=== PATIENT | female | born 1960 | race Caucasian/White ===

== ENCOUNTER 2019-02-02 08:59 | Day surgery (SDC) | payer BC ==
[~2019-02-02 08:59] MED LIST: Sodium Chloride 0.9% 1,000 ML IV SCH
[2019-02-02] MEDS ORDERED: Propofol 200 MG/20 ML SDV ONE (11:05)
--- NOTE | 2019-02-02 15:36 | OR ---
DATE OF OPERATION: 02/02/2019 PREOPERATIVE DIAGNOSIS: Dysphagia. POSTOPERATIVE DIAGNOSIS: Dysphagia. PROCEDURE: EGD with biopsy. ANESTHESIA: MAC. ESTIMATED BLOOD LOSS: Minimal. COMPLICATIONS: None. INDICATION FOR THE PROCEDURE: The patient is a 58-year-old female who for the past 5 years has had difficulty, was intermittently swallowing, does feel like she does get solids stuck in her esophagus. She previously had an upper scope 30 years ago. She is here today for EGD. DESCRIPTION OF PROCEDURE: Informed consent was obtained from the patient. The patient was taken to the operating room and placed on the table in the left lateral decubitus position. Monitored anesthesia care was administered. Esophagogastroscope then advanced through the mouth and directed towards the duodenum. Duodenum was reached and appeared to be normal. Scope was withdrawn into the gastric antrum. She did have some mild gastritis. Cold forceps biopsy was taken for pathology and Helicobacter pylori assessment. Retroflexion performed in the stomach as well. She did have a small healing gastric ulcer with no recent signs of bleeding. Esophagogastroscope then withdrawn into the esophagus. Minimal scar tissue at the GE junction. Biopsy of this was taken with cold forceps biopsy. Remainder of the esophagus was normal. No signs of any esophagitis. Esophagogastroscope then withdrawn. FINDINGS: Mild gastritis, healing gastric ulcer, and potential slight stricture at the GE junction. RECOMMENDATIONS: We will follow up on biopsies and treat the H. pylori accordingly. If all biopsies negative and still having some dysphagia, we would bring back for balloon dilatation at that time. GORDON/ISIS /[id number]
== END 2019-02-02 11:58 | disposition home or self-care (01) ==
LOC: LB.SDS 08:59
PROVIDERS: ATTEND Surgery
DX: K29.50 Unspecified chronic gastritis without bleeding (principal); B96.81 Helicobacter pylori [H. pylori] as the cause of diseases classified elsewhere; K22.8 Other specified diseases of esophagus; J45.909 Unspecified asthma, uncomplicated; Z79.899 Other long term (current) drug therapy
CPT/HCPCS: 43239; 88305; J2704; J7030; 43246

== ENCOUNTER 2019-07-11 08:11 | Emergency (ER) | payer BC ==
--- NOTE | 2019-07-11 08:40 | EDM.PDOC ---
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 She did use ice to the area last night. Every time she took another step the knee gave away. States her pain is a "8" when she tries to step. Minimal pain with sitting/ lying. No swelling and no bruising to area. States no hx of injury to the leg in the past. Right Lower Knee Pain Score (Numeric/FACES): 8 - Related Data Allergies Allergy/AdvReac Type Severity Reaction Status Date / Time No Known Allergies Allergy Verified 02/02/19 09:13 Home Meds: Home Meds Diclofenac Sodium [Voltaren] 50 mg PO TIDMEALS 09/29/17 [History] Hydrocodone/Acetaminophen [[place] 5-325] 1 tab PO Q4H PRN 09/29/17 [History] Albuterol [Ventolin HFA] 2 inh INH Q4HR PRN 11/21/18 [History] Albuterol [Ventolin HFA] 1 - 2 puff INH Q6H 02/02/19 [History] Lidocaine 1 patch TRDERM DAILY 02/02/19 [History] amLODIPine [Norvasc] 2.5 mg PO DAILY 02/02/19 [History] Past Medical History Respiratory History: Reports: Asthma Gastrointestinal History: Reports: Other (See Below) Other Gastrointestinal History: issues with swallowing some foods Genitourinary History: Reports: None 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: Musculoskeletal History: Reports: Arthritis - Past Surgical History Respiratory Surgical History: Reports: None GI Surgical History: Reports: None Female Surgical History: Reports: Section Musculoskeletal Surgical History: Reports: None Social & Family History - Family History Family Medical History: Noncontributory - Caffeine Use Caffeine Use: Reports: Coffee Review of Systems - Review of Systems Review Of Systems: See Below Constitutional: Reports: No Symptoms Respiratory: Reports: No Symptoms Cardiovascular: Reports: No Symptoms GI/Abdominal: Reports: No Symptoms Musculoskeletal: Reports: Other (right knee pain and laxity of knee joint) Skin: Reports: No Symptoms Neurological: Reports: No Symptoms ED EXAM, GENERAL - Physical Exam Exam: See Below Exam Limited By: No Limitations General Appearance: Alert, No Apparent Distress Extremities: Normal Inspection, No Pedal Edema, Other (pain with inversion of lower leg and pain with flexion of leg. No pain with extension. Laxity of patella noted. ) Neurological: Alert, Oriented, Normal Cognition Psychiatric: Normal Affect, Normal Mood Skin Exam: Warm, Dry, Intact, Normal Color. No: Ecchymosis, Erythema Course - Vital Signs Last Recorded V/S: Last Vital Signs Temp 97.8 F 07/11/19 08:31 Pulse 83 07/11/19 08:31 Resp 16 07/11/19 08:31 BP 131/78 07/11/19 08:31 Pulse Ox 99 07/11/19 08:31 - Orders/Labs/Meds Orders: Active Orders 24 hr Category Date Time Status Knee wo Cont Rt [MR] Stat Exams 07/11/19 08:49 Taken - Re-Assessments/Exams Free Text/Narrative Re-Assessment/Exam: 07/11/19 08:42 Will get x-ray of knee 3 views and if no fracture noted, will obtain MRI of knee. 07/11/19 08:51 No acute fracture noted, will obtain MRI of knee with the laxity of the joint. 07/11/19 11:08 X-ray radiology read with mild osteoarthritic changes and moderate joint effusion. No fracture, no dislocation. MRI results pending. Departure - Departure Time of Disposition: 09:15 Disposition: Home, Self-Care 01 Condition: Good Clinical Impression: Knee hyperextension injury - Discharge Information *PRESCRIPTION DRUG MONITORING PROGRAM REVIEWED*: Not Applicable *COPY OF PRESCRIPTION DRUG MONITORING REPORT IN PATIENT RC: Not Applicable Instructions: Crutch Use, Adult, [id number], Combined Knee Ligament Sprain Referrals: PCP,None [Primary Care Provider] - Forms: ED Department Discharge Care Plan Goals: Return at 10:15 for MRI. May take tylenol or motrin for the pain. Rest knee and leg as much as possible - My Orders Last 24 Hours: My Active Orders 07/11/19 08:49 Knee wo Cont Rt [MR] Stat - Assessment/Plan Last 24 Hours: My Active Orders 07/11/19 08:49 Knee wo Cont Rt [MR] Stat Plan: Laxity of right knee and knee pain: Immobilizer applied and crutches dispensed and reviewed education of use of crutches for pt. Elevate, ice and Ibuprofen as needed, with immobilization of knee. MRI results pending. Supportive care at this time. RTC in 1-2 weeks for follow-up as needed.
--- NOTE | 2019-07-11 09:33 | CR ---
DATE OF SERVICE: 07/11/19 CLINICAL DATA: knee pain RIGHT KNEE: Mild osteoarthritic changes. There is a moderate-sized joint effusion. No acute fracture or dislocation. No lytic or blastic bone lesions. [id number] [facility]
--- NOTE | 2019-07-11 17:15 | MR ---
Date of Service: 07/11/19 Clinical Data: injury right knee, laxity of joint RIGHT KNEE MRI: Routine MR protocol. There is mild increased intrameniscal signal within the medial meniscus consistent with mucinous degeneration. No other meniscal abnormalities. No evidence of a meniscal tear. No evidence of a medial meniscal tear. The lateral meniscus is mildly extruded laterally on the coronal images. The lateral meniscus is otherwise intact without evidence of a meniscal tear. The ACL is abnormal. It is discontinuous consistent with a complete ACL tear. The posterior cruciate ligament is intact. The medial and lateral collateral ligaments are intact. There is mild subchondral marrow edema within the lateral tibial plateau posteriorly. This is nonspecific. No other marrow signal abnormality. It probably represents bone contusion. There is mild erosion of the articular cartilage of the medial and lateral compartments. There is mild chondromalacia patella. There is a moderately large joint effusion. The exam is otherwise negative. The patellar and quadriceps tendons are intact. IMPRESSION: Complete ACL tear. Other findings as discussed above. The findings were discussed with the patient's health care provider. [id number] [facility]
== END 2019-07-11 09:15 | disposition home or self-care (01) ==
LOC: LB.ED 08:11
DX: S89.91XA Unspecified injury of right lower leg, initial encounter (principal); J45.909 Unspecified asthma, uncomplicated; Z79.899 Other long term (current) drug therapy; W01.0XXA Fall on same level from slipping, tripping and stumbling without subsequent striking against object, initial encounter; X50.1XXA Overexertion from prolonged static or awkward postures, initial encounter
CPT/HCPCS: 73562-RT; 73721-RT; 99284-25

== ENCOUNTER 2019-08-15 11:21 | Emergency (ER) | payer BC ==
[2019-08-15] MEDS ORDERED: Sodium Chloride 0.9% 10 ML Syringe FLUSH PRN (11:25)
[2019-08-15] MEDS: Aspirin 81 MG Tab.Chew PO ONE (11:38)
[2019-08-15] MEDS: Nitroglycerin 0.4 MG Tab.SL SL PRN (11:38)
[2019-08-15] MEDS: Metoprolol Tartrate 5 MG/5 ML SDV IVPUSH ONE ×3 (11:50→12:38)
--- NOTE | 2019-08-15 12:59 | CR ---
DATE OF SERVICE: 08/15/19 CLINICAL DATA: A-fib. AP PORTABLE CHEST: No priors. The patient has taken a poor inspiration. The heart size is normal. The lungs appear clear. No pneumothorax. No pleural effusions. No evidence of acute intrathoracic disease. [id number] [facility]
[2019-08-15] MEDS ORDERED: Diltiazem 100 MG in Sodium Chloride 0.9% 100 ML IV SCH (13:00)
[2019-08-15] MEDS: Diltiazem 25 MG/5 ML SDV IVPUSH ONE (13:19)
[2019-08-15] MEDS: Heparin Sodium 5,000 Units/ML Vial IVPUSH ONE (13:29)
[2019-08-15] MEDS: Heparin Sodium/D5W 25,000 UNITS/500 ML BAG IV SCH (13:47)
[2019-08-15] MEDS: Diltiazem 100 MG in Sodium Chloride 0.9% 100 ML IV SCH (14:00)
--- NOTE | 2019-08-15 14:56 | ER ---
REASON FOR EMERGENCY ROOM VISIT: Acute atrial fibrillation. 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 She also had some mild lower substernal chest tightness as well, but no radiation down her arms. No penetration through to her back. She has not had any GI symptoms for this. She checked her pulse and recognized that her heart rate was irregularly irregular and surmised that she may have flipped into acute atrial fibrillation prompting her to visit the emergency department. Her past history is significant in that she saw a senior media director, Dr. Kim in [place] for episodes of chest pain, for which she underwent stress testing and this was negative. They did contemplate cardiac catheterization as well as CT coronary angiography, but elected not to do this at that time. She was placed on amlodipine 2.5 mg per day. A week later, she has had some dyspepsia type symptoms and continued epigastric discomfort. 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 She was treated medically and had not had any symptoms for the subsequent 6 months. Last week, she does note that she awoke twice in the middle of the night with some chest pain which improved with sitting up. It was located in the low substernal area. It was not associated with diaphoresis. It did penetrate through to the back, but no radiation up into her neck or arm. She is a nondiabetic, has no history of hypertension. She does take atorvastatin for hyperlipidemia. PAST MEDICAL HISTORY: Significant for: 1. Reactive airway disease as a young adult, but relatively inactive in recent years. 2. Stress test as mentioned above. 3. H pylori as mentioned above. 4. x2. MEDICATIONS: Include: 1. Albuterol. 2. Amlodipine. 3. Atorvastatin. 4. Diclofenac. ALLERGIES: NONE TO MEDICATIONS. FAMILY HISTORY: Negative for any cardiac disease except her mother had acute atrial fibrillation. Her father is currently disabled due to complications from [employer]. She has no siblings. She has 2 children who are alive and well. 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 She denies any smoking. She does chew tobacco. She does drink alcohol on occasion. REVIEW OF SYSTEMS: Pertinent positives and negatives as listed in HPI. PHYSICAL EXAMINATION: GENERAL: Reveals a pleasant, alert woman, in no acute distress. VITAL SIGNS: Her initial heart rate on arrival was in the 130s to 140s and she was in obvious atrial fibrillation. Her blood pressure ranged between 123 and 133 systolic over 73 to 100 diastolic, respiratory rate 18, O2 sats 97 and 99%. HEENT: Unremarkable. Oropharynx is normal. NECK: Supple. No JVD is noted. No adenopathy. CHEST: Clear to auscultation. No wheezes, rhonchi, or rales and good air exchange bilaterally. CARDIAC: Irregularly irregular. No murmur or rub can be heard. ABDOMEN: Soft, nontender. There is no right upper quadrant tenderness. No hepatosplenomegaly. No palpable masses. EXTREMITIES: Normal pulses. No edema. Good perfusion. No cyanosis. NEUROLOGIC: She moves all 4 extremities very well to command. Normal muscle tone, bulk, and strength. Deep tendon reflexes were not checked. Sensory examination is normal to crude touch. LABORATORY DATA: Her electrolytes are normal. Her creatinine is 0.67 with a BUN of 18 and GFR estimated at greater than 60. Her blood glucose is 93. Her calcium 8.9. Troponin 1 was normal at less than 0.017. Her TSH was 1.436. A CBC is pending at the time of this dictation. Chest x-ray was a portable film, does not show any pulmonary edema or obvious infiltrates. No active pulmonary disease is evident. A 12-lead EKG showed atrial fibrillation with rapid ventricular response. IMPRESSION: Acute onset atrial fibrillation. The duration of this is not entirely clear at this time. Hemodynamically, she is stable. PLAN: Since she is stable hemodynamically, but she was having some vague chest discomfort, I went ahead and treated her with metoprolol 2.5 mg IV x1 and repeated at 5 minutes later at 5 mg IV. This got her rate down to the 100 to 115 range and her blood pressure remained stable. She had no further episodes of chest discomfort and felt normal at the time of this dictation. I discussed the patient's presentation and history with a senior media director from [place] on-call, Dr. Barbosa and subsequently discussed her situation with Dr. Swartz, the hospitalist. They agreed to take her in transfer where she can be further evaluated including a possible CT coronary angiogram and echocardiography, possibly even cardiac catheterization depending. We went ahead and gave her a bolus of diltiazem 20 mg and started a diltiazem drip. We also gave her a bolus of heparin 5000 units followed by heparin continuous infusion at 800 units/hour of IV heparin. 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 She will be transferred by ambulance via ACLS protocol. All questions were answered. She agrees with this plan. They did agree to take her in transfer. MARIAN/ISIS /[id number]
[2019-08-15 20:26] VITALS: PULSE 101
[2019-08-16] MEDS: Nitroglycerin 0.4 MG Tab.SL SL ONE (11:16)
[2019-08-17 03:59] VITALS: BP 134/80
== END 2019-08-15 15:04 ==
LOC: LB.ED 11:21
DX: I48.91 Unspecified atrial fibrillation (principal)
CPT/HCPCS: 36415; 71045; 80048; 84443; 84484; 85025; 85610; 85730; 93005; 96374; 96375; 96376; 99285-25; A9270-GY; J1644; J3490; J7030

== ENCOUNTER 2020-02-02 16:34 | Emergency (ER) | payer BC ==
--- NOTE | 2020-02-02 17:12 | EDM.PDOC ---
ED HPI GENERAL MEDICAL PROBLEM - General Stated Complaint: FALL INJURED KNEE Time Seen by Provider: 02/02/20 17:00 Source of Information: Reports: Patient History Limitations: Reports: No Limitations - History of Present Illness INITIAL COMMENTS - FREE TEXT/NARRATIVE: This patient presents to the ED for evaluation of a knee injury. She was walking when she fell, rotating her lower leg laterally; states there was an obvious deformity to the joint but did not fall directly on it. She has a history of an ACL injury to this knee that was treated with conservative therapy including PT. She recently finished that. She placed herself back into her knee brace and used crutches to get here. She states that will moving to try and get here when she felt the joint "pop" and it seemed to feel some better. Patient believes that she had a dislocation that relocated. She continues to complain of pain but it is better. There is tenderness of the joint with swelling noted. She denies other injuries or concerns. Onset: Today, Sudden Location: Reports: Lower Extremity, Right - Related Data Allergies Allergy/AdvReac Type Severity Reaction Status Date / Time No Known Allergies Allergy Verified 08/15/19 11:35 Home Meds: Home Meds Diclofenac Sodium [Voltaren] 50 mg PO TIDMEALS 09/29/17 [History] Hydrocodone/Acetaminophen [[place] 5-325] 1 tab PO Q4H PRN 09/29/17 [History] Albuterol [Ventolin HFA] 2 inh INH Q4HR PRN 11/21/18 [History] Albuterol [Ventolin HFA] 1 - 2 puff INH Q6H 02/02/19 [History] Lidocaine 1 patch TRDERM DAILY 02/02/19 [History] amLODIPine [Norvasc] 2.5 mg PO DAILY 02/02/19 [History] Past Medical History Cardiovascular History: Reports: Angina Respiratory History: Reports: Asthma Gastrointestinal History: Reports: Other (See Below) Other Gastrointestinal History: issues with swallowing some foods -esophageal stricture - sometimes worse Genitourinary History: Reports: None 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 ED EXAM, GENERAL - Physical Exam Exam: See Below Exam Limited By: No Limitations General Appearance: Alert, WD/WN, Moderate Distress Head: Atraumatic, Normocephalic Neck: Normal Inspection, Full Range of Motion Respiratory/Chest: No Respiratory Distress, No Accessory Muscle Use Cardiovascular: Normal Peripheral Pulses Extremities: Normal Inspection, Other (Significant tenderness to entire right knee joint, ROM limited by pain. Moderate swelling later and medial to patella. No obvious deformity, no discoloration, distal CMS intact.) Neurological: Alert, Oriented Skin Exam: Warm, Dry, Intact Course - Orders/Labs/Meds Orders: Active Orders 24 hr Category Date Time Status Knee 3V Rt [CR] Stat Exams 02/02/20 17:05 Ordered Ketorolac [Toradol] Med 02/02/20 17:05 Once 60 mg IM ONETIME ONE - Re-Assessments/Exams Free Text/Narrative Re-Assessment/Exam: 02/02/20 17:47 This patient presents with the above complaint and exam findings as noted above. X-rays are negative by my interpretation for fracture or malalignment. The patient is neurovascularly intact. Quad and patellar tendon function intact. The knee is grossly stable to stressing without obvious laxity, though this is somewhat a limited test given the patient pain and voluntary guarding. Given the exam (significant traumatic effusion), mechanism and high clinical suspicion, I suspect internal derangement of the knee including possible ligamentous and/or meniscal injury. For this reason, the patient will be treated as such with non-weight bearing and knee immobilization. Skin intact at the location of injury. No tenderness at the hip or foot to suggest concurrent injury. At this time, exam and history is clearly traumatic/musculoskeletal in nature and consistent with probable internal knee derangement and no clinical suspicion for alternate cause of knee pain including but not limited to septic joint, DVT, compartment syndrome or other. The patient will be treated with a knee immobilizer and I have recommended primary clinic follow up within 1 week for outpatient MRI or orthopedic referral. Ice in 20 min intervals and elevation recommended. Return for increasing pain, extremity weakness, numbness , or for any other questions or concerns discussed. The patient voiced an understanding and is in agreement with the treatment plan and need for follow up for likely additional imaging or referral. The patient was provided prescriptions for [place] and Flexeril. Departure - Departure Time of Disposition: 18:00 Disposition: Home, Self-Care 01 Condition: Fair Clinical Impression: Knee injury - Discharge Information *PRESCRIPTION DRUG MONITORING PROGRAM REVIEWED*: No - My Orders Last 24 Hours: My Active Orders 02/02/20 17:05 Knee 3V Rt [CR] Stat Ketorolac [Toradol] 60 mg IM ONETIME ONE - Assessment/Plan Last 24 Hours: My Active Orders 02/02/20 17:05 Knee 3V Rt [CR] Stat Ketorolac [Toradol] 60 mg IM ONETIME ONE
[2020-02-02] MEDS: Ketorolac 60 MG/2 ML SDV IM ONE (17:24)
[2020-02-02] MEDS ORDERED: Cyclobenzaprine 10 MG Tab ONE (18:00)
[2020-02-02] MEDS ORDERED: Acetaminophen/HYDROcodone 325-5 MG Tab ONE (18:00)
--- NOTE | 2020-02-04 08:32 | CR ---
DATE OF SERVICE: 02/02/20 CLINICAL DATA: injury RIGHT KNEE: No acute fracture or dislocation. No lytic or blastic bone lesions. There is a moderate size joint effusion. [id number] [facility]
== END 2020-02-02 17:51 | disposition home or self-care (01) ==
LOC: LB.ED 16:34
DX: S89.91XA Unspecified injury of right lower leg, initial encounter (principal); J45.909 Unspecified asthma, uncomplicated; Z79.899 Other long term (current) drug therapy; W19.XXXA Unspecified fall, initial encounter
CPT/HCPCS: 73560-RT; 96372; 99283-25; A9270-GY; J1885

== ENCOUNTER 2021-02-14 17:17 | Emergency (ER) | payer BC ==
[2021-02-14] MEDS: Aspirin 81 MG Tab.Chew PO ONE ×2 (17:20→18:29)
[2021-02-14] MEDS ORDERED: Sodium Chloride 0.9% 10 ML Syringe FLUSH PRN (17:22)
[2021-02-14] MEDS: GI Cocktail Oral Solution 30 ML PO ONE ×2 (17:30→18:30)
[2021-02-14] MEDS ORDERED: HYDROmorphone 4 MG/ML Syringe IVPUSH PRN (18:06)
--- NOTE | 2021-02-14 20:10 | ER ---
REASON FOR EMERGENCY ROOM VISIT: Chest pain. 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 For the past 2 days, she has had episodes of low substernal chest pain which is a squeezing type of chest pain. It is not related to exertion, but she states that she has had a great deal of stress related to work as of late. She has been seen in the emergency room at least 4 times in the past 2 years for similar episodes. She has been worked up and followed by Cardiology for these and she has seen her provider, Dr. Marvin, for this in the past. She did have a negative coronary artery CT scan 1 year ago or so, and she has had a nuclear stress test and she was told it was normal, but on review of the report, it did show a small apical defect, possibly consistent with a small infarct. She has not had a coronary angiogram. She has had negative stress test as well. She is scheduled to see her privacy compliance manager again, at which time they will do a stress test. She has been told that she cannot have a coronary angiogram without some other indications such as a positive stress test, etc. This is evidently for insurance reasons. Additionally, she does have a history of gastroesophageal reflux disease for several years, which is manifested with some epigastric discomfort and pyrosis. She had an upper GI endoscopy in the past, which showed H pylori and an esophageal stricture. No followup endoscopy was ever undertaken. She has taken omeprazole for heartburn in the last month, but thinks that the symptoms that she has had in the past couple of days are somewhat different in quality and location. She has not had any diaphoresis with this. There is no radiation down her arm or upper jaw. The episodes of pain are not related to exertion. She has gotten relief of her chest pain with nitroglycerin in the recent weeks when she has had these episodes. I last saw her in this emergency room in August 2019 for palpitations and lightheadedness related to atrial fibrillation with a rapid ventricular response. At that time, metoprolol and later a diltiazem and as well as a diltiazem drip and she was transferred to Cardiology in [place]. She was discharged on Cardizem ER subsequent to that. This past couple of days, her pain has waxed and waned and she has taken nitroglycerin as mentioned above. One tablet does not seem to help with that. Taking 2 or 3, her chest pains have gone away. She has not had any palpitations or lightheadedness. She denies any shortness of breath. She has not had any other symptoms of pain such as leg pain, etc. She has not had a cough or fever. PAST MEDICAL HISTORY: As noted above and includes: 1. Atrial fib with RVR. 2. History of hypertension. 3. GERD. 4. Episodes of chest pain. 5. History of H pylori with esophageal stricture. MEDICATIONS: Reviewed. See electronic medical record. She does take flecainide p.r.n. for symptomatic atrial fibrillation. She has not needed this lately. She is on Cardizem 180 ER 1 per day. ALLERGIES: SHE HAS DEVELOPED A RASH AFTER TAKING MORPHINE IN THE PAST. REVIEW OF SYSTEMS: Pertinent positives and negatives as listed in the HPI. PHYSICAL EXAMINATION: GENERAL: She is alert. She is mildly anxious, but in no acute distress. VITAL SIGNS: Heart rate is 80, in sinus rhythm. Blood pressure 127/86, respiratory rate 16, O2 sats 98% on room air. HEENT. Head is normocephalic. No scleral icterus or conjunctivitis is noted. Oropharynx is normal. NECK: Supple. No thyromegaly. No JVD. No adenopathy. No bruits. CHEST: Clear to auscultation with good air exchange. No wheezes, rhonchi, or rales. CARDIAC: Regular rate without murmur. No rub is noted. ABDOMEN: Soft and nontender. EXTREMITIES: Normal pulses. No edema. No deformities. NEUROLOGIC: She moves all 4 extremities to command. No facial asymmetry. No numbness or weakness. 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 No acute changes were noted. No ST-segment changes were noted. She is in sinus rhythm. CBC was unremarkable. CMP was similarly unremarkable. Her troponin was less than 0.017 further. EMERGENCY ROOM COURSE: On arrival, an IV was started, an EKG was obtained, and she was given 2 nitroglycerin. She additionally was given 3 baby aspirin. Subsequent to that, she received 1 mg of Dilaudid IV. She also received a GI cocktail with viscous lidocaine. Her symptoms resolved and did not recur after an observation for a couple of hours in the emergency department. IMPRESSION: Episodes of chest pain. No evidence for cardiac origin at this time, although I told her that I do think she should have a coronary angiogram. She has been seeing her provider fairly regularly as well as a privacy compliance manager for this and she wanted to go home. I felt that that was reasonable under the circumstances in the absence of any worrisome EKG changes or troponin elevations and in the face of her symptoms resolving. She knows that should she have a recurrence of her symptoms, she should return and we will evaluate her again. At that point, I would probably push to have her transferred to [place] to get this all sorted out. As mentioned above, she does have an appointment with her privacy compliance manager to have a stress test done on the of this month. All questions were answered. She understands and agrees this plan. FOX /[id number]
== END 2021-02-14 19:02 | disposition home or self-care (01) ==
LOC: LB.ED 17:17
DX: R07.9 Chest pain, unspecified (principal); I10 Essential (primary) hypertension; I48.91 Unspecified atrial fibrillation; K21.9 Gastro-esophageal reflux disease without esophagitis; Z79.899 Other long term (current) drug therapy
CPT/HCPCS: 36415; 80053; 84484; 85027; 93005; 96374; 99285-25; A9270-GY; J1170

== ENCOUNTER 2022-02-12 08:26 | Emergency (ER) | payer BC ==
[2022-02-12] MEDS: Orphenadrine 60 MG/2 ML Inj IM ONE (09:18)
[2022-02-12] MEDS: Ketorolac 30 MG/ML SDV IM ONE (09:19)
[2022-02-12] MEDS ORDERED: Ketorolac 30 MG/ML SDV ONE (09:25)
[2022-02-12] MEDS ORDERED: Orphenadrine 60 MG/2 ML Inj ONE (09:25)
[2022-02-12] MEDS ORDERED: HYDROmorphone 2 MG/ML SDV IM ONE (10:01)
[2022-02-12] MEDS: HYDROmorphone 2 MG/ML SDV IM ONE (10:02)
[2022-02-12] MEDS ORDERED: HYDROmorphone 2 MG/ML Syringe ONE (10:08)
== END 2022-02-12 11:12 | disposition home or self-care (01) ==
LOC: LB.ED 08:26
DX: S22.080A Wedge compression fracture of T11-T12 vertebra, initial encounter for closed fracture (principal); M43.06 Spondylolysis, lumbar region; M51.36 Other intervertebral disc degeneration, lumbar region; I48.91 Unspecified atrial fibrillation; K21.9 Gastro-esophageal reflux disease without esophagitis; F17.210 Nicotine dependence, cigarettes, uncomplicated; W10.9XXA Fall (on) (from) unspecified stairs and steps, initial encounter
CPT/HCPCS: 72100; 72131; 96372; 99283; J1170; J1885; J2360